=== PATIENT | female | born 1995 | race Caucasian/White ===

== ENCOUNTER 2016-06-26 15:02 | Emergency (ER) | payer MEDICARE | END 2016-06-26 16:20 | disposition home or self-care (01) | LOC: ER 15:02 | DX: J11.1 Influenza due to unidentified influenza virus with other respiratory manifestations (principal) | CPT/HCPCS: 99282 ==

== ENCOUNTER 2016-08-14 21:33 | Emergency (ER) | payer MEDICARE ==
[2016-08-14 22:04] LABS: BASO % 0.3 % (0.1-1.2); EOS # 0.2 10_X3_uL (0.0-0.4); EOS % 2.7 % (0.7-5.8); GRAN # 3.8 10_X3_uL (1.6-6.1); GRAN % 47.5 % (34.0-71.1); HEMATOCRIT 37.5 % (34-45); HEMOGLOBIN 12.1 g/dL (11.2-15.7); LYMPH # 3.1 10_X3_uL (1.2-3.7); LYMPH % 39.5 % (19.3-51.7); MEAN CORPUSCULAR HEMOGLOBIN 26.4 pg (27.0-33.0); MEAN CORPUSCULAR HGB CONC 32.3 g/dL (32.0-36.0); MEAN CORPUSCULAR VOLUME 81.7 fL (79-95); MEAN PLATELET VOLUME 9.7 fl (7.5-11.5); MONO # 0.8 10_X3_uL (0.2-0.9); PLATELET COUNT 330 x10_3/uL (182-369); RED BLOOD COUNT 4.59 x10_6/uL (3.9-5.2); RED CELL DISTRIBUTION WIDTH 16.6 % (11.7-14.4); WHITE BLOOD COUNT 7.9 x10_3/uL (4.0-10.0)
[2016-08-14 22:18] LABS: BLOOD UREA NITROGEN 8 mg/dL (7-18); CALCIUM 8.7 mg/dL (8.7-10.7); CARBON DIOXIDE 22 mmol/L (21-32); CREATININE 0.6 mg/dL (0.6-1.3); GLUCOSE,RANDOM 88 mg/dL (70-99); SODIUM 138 mmol/L (136-145)
== END 2016-08-14 22:45 | disposition home or self-care (01) ==
LOC: ER 21:33
PROVIDERS: General Practice
DX: R05 Cough (principal); R00.0 Tachycardia, unspecified; B85.0 Pediculosis due to Pediculus humanus capitis; Z32.01 Encounter for pregnancy test, result positive; Z79.899 Other long term (current) drug therapy
CPT/HCPCS: 36415; 80048; 80307; 81025; 84443; 85025; 87070; 87880; 93005; 99283-25